=== PATIENT | female | born 1960 | race Caucasian/White ===

== ENCOUNTER 2020-09-30 08:20 | Day surgery (SDC) | payer OTHER, SELFPAY ==
[~2020-09-30] VITALS: Ht 157.5 cm; Wt 70.3 kg
[2020-09-30] MEDS ORDERED: SIMETHICONE 40 MG/0.6 ML ML ONE (08:40)
[2020-09-30] MEDS ORDERED: MIDAZOLAM HCL 5 MG/5 ML VIAL ONE ×2 (08:40→08:42)
[2020-09-30] MEDS ORDERED: MEPERIDINE 100 MG INJ. 100 MG/ML VIAL ONE (08:40)
[2020-09-30 16:02] VITALS: BP_SYST 110
== END 2020-09-30 10:45 | disposition home or self-care (01) ==
LOC: SDS 08:20 → SMU 08:20 → SDS 10:45
PROVIDERS: ATTEND Internal Medicine Gastroenterology
DX: R19.4 Change in bowel habit (principal); R07.0 Pain in throat; K21.00 Gastro-esophageal reflux disease with esophagitis, without bleeding; K44.9 Diaphragmatic hernia without obstruction or gangrene; K29.70 Gastritis, unspecified, without bleeding; K57.30 Diverticulosis of large intestine without perforation or abscess without bleeding; I10 Essential (primary) hypertension; Z79.899 Other long term (current) drug therapy
CPT/HCPCS: 36415 ×2; 43239; 45378; 87081; 87426; 88305; 88312; 88313; 99152; 99153; G0378; J2175; J2250